=== PATIENT | female | born 1990 | race Asian ===

== ENCOUNTER 2016-09-11 12:29 | Emergency (ER) | payer MEDICAID, OTHER ==
[2016-09-11 12:37] VITALS: BP 116/72
--- NOTE | 2016-09-11 14:47 | ED Physician Documentation ---
PD HPI HEENT - Stated complaint Stated Complaint: HEARING LOSS - Chief complaint Chief Complaint: Heent - History obtained from History obtained from: Patient - History of Present Illness Timing - onset: Other (Sick for about a week with increasing hearing loss. She has resolved right ear drainage and resolved fevers and sinus congestion but the hearing loss is persistent.) Review of Systems Constitutional: reports: Fever. denies: Chills Eyes: denies: Loss of vision, Decreased vision Ears: reports: Ear pain (Resolved), Drainage/discharge (Resolved) Nose: reports: Rhinorrhea / runny nose (Resolved) PD PAST MEDICAL HISTORY - Past Medical History Past Medical History: No - Past Surgical History Past Surgical History: No - Present Medications Home Medications: Ambulatory Orders Medication Instructions Recorded Confirmed Amoxicillin 500 mg PO TID #30 capsule 09/11/16 - Allergies Allergies/Adverse Reactions: Allergies Allergy/AdvReac Type Severity Reaction Status Date / Time cetirizine HCl * Allergy Rash Verified 09/11/16 12:37 [From [facility]] - Social History Does the pt smoke?: No Smoking Status: Never smoker Does the pt drink ETOH?: No Does the pt have substance abuse?: No - Immunizations Immunizations are current?: Yes - POLST Patient has POLST: No PD ED PE NORMAL - Vitals Vital signs reviewed: Yes - General General: Alert and oriented X 3, No acute distress - HEENT HEENT: PERRL, Pharynx benign, Other (severe BOm, no perf now) - Neck Neck: Supple, no meningeal sign, No bony TTP - Neuro Neuro: Alert and oriented X 3, Normal speech - Psych Psych: Normal mood, Normal affect Results - Vitals Vitals: Vital Signs - 24 hr 09/11/16 12:34 Temperature 36.7 C Heart Rate 87 Respiratory 16 Rate Blood Pressure 116/72 O2 Saturation 99 Oxygen O2 Source Room air Departure - Departure Disposition: 01 Home, Self Care Clinical Impression: BOM (bilateral otitis media) Qualifiers: Otitis media type: suppurative Chronicity: acute Recurrence: not specified as recurrent Spontaneous tympanic membrane rupture: without spontaneous rupture Qualified Code(s): H66.003 - Acute suppurative otitis media without spontaneous rupture of ear drum, bilateral Condition: Good Record reviewed to determine appropriate education?: Yes Instructions: ED Otitis Media Acute Adult Prescriptions: Amoxicillin 500 mg PO TID #30 capsule Comments: Followup with your physician in 1 week
== END 2016-09-11 14:55 | disposition home or self-care (01) ==
LOC: ED 12:29
DX: H66.003 Acute suppurative otitis media without spontaneous rupture of ear drum, bilateral (principal)
CPT/HCPCS: 99283